=== PATIENT | female | born 1960 | race Caucasian/White ===

== ENCOUNTER 2017-07-25 10:23 | Day surgery (SDC) | payer BC ==
[~2017-07-25] VITALS: Ht 172.7 cm; Wt 54.5 kg
[2017-07-25 10:49] VITALS: BP 118/75
[2017-07-25] MEDS ORDERED: NAPR220C2 PO (10:54)
[2017-07-25] MEDS ORDERED: OMEG1CAP34 PO (10:54)
[2017-07-25] MEDS ORDERED: MULT-6 PO (10:54)
[2017-07-25] MEDS ORDERED: CHOL2000 PO (10:54)
[2017-07-25] MEDS ORDERED: ISOPROTERENOL 0.2MG/ML, 5ML ONE (11:38)
== END 2017-07-25 12:25 | disposition home or self-care (01) ==
LOC: CACL 10:23
PROVIDERS: ATTEND Internal Medicine Cardiovascular Disease
DX: R00.0 Tachycardia, unspecified (principal); K29.70 Gastritis, unspecified, without bleeding; Z88.8 Allergy status to other drugs, medicaments and biological substances
CPT/HCPCS: 93660